=== PATIENT | female | born 1940 | race Two or more races ===

== ENCOUNTER 2016-04-12 08:13 | Emergency (ER) | payer MEDICARE, OTHER ==
[~2016-04-12] VITALS: Ht 165.1 cm; Wt 66.2 kg
[~2016-04-12 08:13] MED LIST: REGLAN10 MG PO
[2016-04-12] MEDS ORDERED: PATADAY2.5 ML OP (08:30)
--- NOTE | 2016-04-12 09:06 | Emergency Room Report ---
History of Present Illness General Chief Complaint: Eye Problems Source: Patient Present Illness HPI Patient states that she has had itchy eyes for the past few days. He denies pain or discharge. She denies fever or chills. She denies headache. She denies recent illness. She states that she does have a history of allergies and this feels similar. She has no other complaints. Allergies: Coded Allergies: CYANOCOBALAMIN TA *RETIRED-11/30/11 (Verified Allergy, Unknown, 09/10/11) Patient History Past Medical History: see triage record, other - Diverticulitis Social History: Denies: alcohol use, drug use, smoking Reviewed Nursing Documentation: PMH: Agreed, PSxH: Agreed Nursing Documentation-PMH Past Medical History: No Stated History Hx Cardiac Problems: No Hx Cancer: No Hx Neurological Problems: No Review of Systems All Other Systems: negative except mentioned in HPI Physical Exam Vital Signs Date Time Temp Pulse Resp B/P Pulse Ox O2 Delivery O2 Flow Rate FiO2 04/12/16 08:21 97.5 87 18 131/75 97 Room Air Sp02 EP Interpretation: reviewed, normal General Appearance: no apparent distress, alert, GCS 15, non-toxic Head: normocephalic, atraumatic Eyes: bilateral eye PERRL, bilateral eye other - mild conjunctival erythema ENT: hearing grossly normal, normal pharynx, no angioedema, normal voice Neck: full range of motion Respiratory: no respiratory distress, no retraction, no accessory muscle use, speaking full sentences Rectal: deferred Musculoskeletal: back normal, gait/station normal, normal range of motion, non- tender Neurologic: alert, oriented x3, responsive, motor strength/tone normal, sensory intact, speech normal Psychiatric: judgement/insight normal, memory normal, mood/affect normal, no suicidal/homicidal ideation Skin: normal color, no rash, warm/dry, well hydrated Medical Decision Making Diagnostic Impression: Primary Impression: Allergic conjunctivitis ER Course This patient has a physical exam findings consistent with allergic conjunctivitis. She also has a history and symptoms consistent with this with her primary pruritus. There is no evidence of a bacterial component. Overall, this patient's evaluation is benign. I will give the patient topical antihistamines and she is instructed to followup closely with an senior application programmer were her primary care physician. The patient is given return precautions and followup instructions. Last Vital Signs Date Time Temp Pulse Resp B/P Pulse Ox O2 Delivery O2 Flow Rate FiO2 04/12/16 08:21 97.5 87 18 131/75 97 Room Air Disposition: HOME, SELF-CARE Condition: Improved TATY HALL D.O. Apr 12, 2016 09:06
[2016-04-12] MEDS ORDERED: ELESTAT5 ML OP (09:09)
[2016-04-12 09:16] VITALS: BP 126/70
== END 2016-04-12 09:19 | disposition home or self-care (01) ==
LOC: EMR 09:04
DX: H10.10 Acute atopic conjunctivitis, unspecified eye (principal)
CPT/HCPCS: 99282